=== PATIENT | male | born 1970 | race Caucasian/White ===

== ENCOUNTER 2021-04-21 19:02 | Inpatient (IN) ==
[~2021-04-21 19:02] MED LIST: ETOMIDATE 2 MG/ML 20 ML VIAL IV ONE; RAPID SEQUENCE INDUCTION BAG ONE; ROCURONIUM BROMIDE 10 MG/ML 5 ML VIAL IV ONE
[2021-04-21] MEDS ORDERED: STAT IV Infusion **Titration per Protocol STA ×2 (19:18→22:50)
[2021-04-21] MEDS ORDERED: DIPHTHERIA/TETANUS/PERTUSSIS 0.5 ML SYR/VIAL IM ONE (19:24)
[2021-04-21] MEDS ORDERED: PROPOFOL IV EMULSION 10 MG/ML 100 ML VIAL IV ONE (19:27)
[2021-04-21] MEDS ORDERED: SODIUM CHLORIDE 0.9% 1000ML 1,000 ML IV SCH (19:30)
[2021-04-21] MEDS ORDERED: PATIENT'S HEIGHT AND/OR WEIGHT NEEDED SCH (19:30)
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
[2021-04-21] MEDS: propofoL 1,000 MG/100 ML VIAL IV SCH ×2 (19:39→23:07)
[2021-04-21] MEDS ORDERED: SODIUM CHLORIDE 0.9% 1000ML 1,000 ML IV ONE (19:45)
[2021-04-21 19:47] LABS: Basophils # (auto) 0.05 K/uL (0-0.2); Basophils % (auto) 0.6 %; Eosinophils # (auto) 0.02 K/uL (0-0.5); Eosinophils % (auto) 0.2 %; Hematocrit (blood only) 44.1 % (42-52); Hemoglobin 14.8 g/dL (14.0-18.0); Immature Granulocytes # (auto) 0.02 K/uL (0.00-0.02); Immature Granulocytes % (auto) 0.2 %; Lymphocytes # (auto) 3.57 K/uL (1.2-3.4); Lymphocytes % (auto) 41.2 %; Mean Corpuscular Hemoglobin 30.1 pg (25-34); Mean Corpuscular Hgb Conc 33.6 g/dL (32-36); Mean Corpuscular Volume 89.6 fL (80-100); Mean Platelet Volume 9.6 fL (7.4-10.4); Monocytes # (auto) 0.53 K/uL (0.11-0.59); Monocytes % (auto) 6.1 %; Neutrophils # (auto) 4.47 K/uL (1.4-6.5); Neutrophils % (auto) 51.7 %; Platelet Count 401 K/uL (130-400); RDW Coefficient of Variation 12.9 % (11.5-14.5); RDW Standard Deviation 42.4 fL (36.4-46.3); Red Blood Count 4.92 M/uL (4.7-6.1); White Blood Count 8.66 K/uL (4.8-10.8)
--- NOTE | 2021-04-21 20:00 | XRay Report ---
XR chest 1V portable CLINICAL HISTORY: ETT COMPARISON STUDY: March 29, 2021 FINDINGS: No pneumothorax. No pleural effusion. Opacities are seen within left retrocardiac region and could represent small atelectasis or infiltrat e. Lung volumes are decreased with crowded lung markings. Cardiomediastinal silhouette is within upper limits of normal. Prominence of bilateral kobi with indistinct margins are seen. Overall evaluation is limited due to m ild rotation.. Osseous structures: unremarkable Interval placement of endotracheal tube with tip projecting 2.0 cm above summer. IMPRESSION: 1. Tip of endotracheal tube is projecting 2.0 cm above summer. Please note that the expected positio n of ET tube tube is 3 to 5 cm above summer. 2. Low lung volumes and crowded lung markings. 3. Possible atelectasis/infiltrate within left retrocardiac region. 4. Possible pulmonary edema. ACT 112: Negative or not required by law. The above report was generated using voice recognition software. It may contain grammatical, syntax o r spelling errors. Electronically signed by: Alejandrina Paredes DO 04/21/2021 7:59 PM
[2021-04-21 20:04] LABS: Partial Thromboplastin Ratio 0.9; Partial Thromboplastin Time 23.5 Seconds (21.0-31.0); Prothrombin Time 10.1 Seconds (9.0-12.0)
[2021-04-21 20:06] LABS: Alanine Aminotransferase 27 U/L (12-78); Albumin Level 4.1 gm/dl (3.4-5.0); Aspartate Aminotransferase 29 U/L (15-37); BUN Creatinine Ratio 9.1 (10-20); Blood Urea Nitrogen 11 mg/dl (7-18); Calcium 8.2 mg/dl (8.5-10.1); Carbon Dioxide 23 mmol/L (21-32); Chloride 110 mmol/L (98-107); Est GFR (African American) 82.4 ml/min; Est GFR (Non-African American) 71.1 ml/min; Glucose 109 mg/dl (70-99); Lipase 92 U/L (73-393); Magnesium 1.5 mg/dl (1.8-2.4); Potassium 3.2 mmol/L (3.5-5.1); Sodium 143 mmol/L (136-145)
[2021-04-21 20:08] LABS: Appearance Urine Clear (Clear); Bacteria Urine Automated Negative (Negative); Bilirubin Urine Negative (Negative); Blood Urine Negative (Negative); Cast Urine Automated 0 /lpf (0-5); Color Urine Yellow; Glucose Urine UA Negative (Negative); Ketones Urine Negative (Negative); Leukocyte Esterase Urine Trace (Negative); Nitrite Urine Negative (Negative); Protein Urine Negative (Negative); RBC Urine Automated 0-4 /hpf (0-4); Specific Gravity Urine 1.009 (1.000-1.030); Urobilinogen Urine Negative (Negative); pH Urine 5.5 (4.5-7.5)
[2021-04-21 20:11] LABS: Albumin Globulin Ratio 1.2 (0.9-2); Alkaline Phosphatase 69 U/L (45-117); Bilirubin,Total 0.4 mg/dl (0.2-1); Creatine Kinase 477 U/L (39-308); Globulin 3.5 gm/dl (2.5-4.0); Total Protein 7.6 gm/dl (6.4-8.2); Troponin I < 0.015 ng/ml (0-0.045)
--- NOTE | 2021-04-21 20:11 | CT Scan Report ---
CT head/brain wo con CLINICAL HISTORY: AMS COMPARISON STUDY: March 30, 2021 TECHNIQUE: Axial CT of the brain is performed from the vertex to the skull base. IV contrast was not administered for this examination. A dose lowering technique was utilized adhering to the principles of ALARA. CT DOSE: 666.22 mGycm FINDINGS: No intra or extra-axial mass lesions are visualized. There is no CT evidence of acute cortical infarc tion. There is no evidence of midline shift. There is no acute hemorrhage. No acute depressed calvar ial fractures are visualized. Redemonstration of chronic fracture and deviation of the nasal septum. There is no evidence of pathologic ventricular dilatation. Partial opacification of bilateral ethmoid air cells is seen. Interval resolution of previously seen opacification of the right maxillary sinus. IMPRESSION: No acute intracranial hemorrhage, no midline shift or space occupying lesions. Partial opacification of ethmoid air cells could represent inflammatory process. Interval resolution of previously seen opacification of the right maxillary sinus. ACT 112: Negative or not required by law. The above report was generated using voice recognition software. It may contain grammatical, syntax o r spelling errors. Electronically signed by: Alejandrina Paredes DO 04/21/2021 8:09 PM
[2021-04-21] MEDS: PROPOFOL BOLUS FROM BAG IV PRN ×4 (20:12→21:14)
[2021-04-21 20:18] LABS: Acetaminophen < 2 ug/ml (10-30); Salicylate < 1.7 mg/dl (2.8-20)
[2021-04-21 20:34] LABS: iSTAT Arterial Blood Gas HCO3 26 meg/L (19-24); iSTAT Arterial Blood Gas pCO2 58 mmHg (35-46); iSTAT Arterial Blood Gas pH 7.26 (7.35-7.45); iSTAT Arterial Blood Gas pO2 134 mmHg (80-95); iSTAT Carbon Dioxide 28 mmol/L (24-31)
[2021-04-21] MEDS ORDERED: fentaNYL citrate 100 MCG/2 ML VIAL IV STA (20:36)
--- NOTE | 2021-04-21 20:38 | CT Scan Report ---
CT OF THE CERVICAL SPINE CLINICAL HISTORY: sedated CENTRAL CANAL AND BILATERAL NEUROFORAMINA ARE PATENT. COMPARISON STUDY: No previous studies for comparison. CT DOSE: 424.35 mGycm TECHNIQUE: CT scan of the cervical spine was performed from the skull base to the thoracic inlet. Mackenzie ges are reviewed in the axial, sagittal, and coronal planes. IV contrast was not administered for thi s examination. A dose lowering technique was utilized adhering to the principles of ALARA. FINDINGS: The visualized portions of the lung apices reveal no evidence of pneumothorax. There is minimal prominence of prevertebral soft tissue. Patient is intubated. Normal cervical lordosis is preserved. Vertebral body heights and intervertebral disc spaces are main tained. Evaluation of the lower cervical spine is limited due to beam hardening artifact. There is mild deformity of C6 spinous process (3/349) which might represent fracture of unknown acuit y. No other fractures or traumatic malalignment visualized. Central canal and bilateral neuroforamina are patent. IMPRESSION: Minimally displaced fracture of C6 spinous process. Acuity is unknown. No other fracture or traumatic malalignment is seen. Limited exam of the lower cervical spine due to beam hardening artifact. Prominence of paravertebral soft tissue in this intubated patient. Above-mentioned findings might rep resent traumatic soft tissue injury of the cervical spine or related to intubation. Follow-up evaluat ion with MRI of the cervical spine might be considered if clinically indicated. Findings will be sent to the emergency Department. ACT 112: Negative or not required by law. The above report was generated using voice recognition software. It may contain grammatical, syntax o r spelling errors. Electronically signed by: Alejandrina Paredes DO 04/21/2021 8:36 PM
[2021-04-21 20:40] LABS: Amphetamines+Metham, Urine Neg (Neg); Barbiturates, Urine Neg (Neg); Benzodiazepine, Urine Neg (Neg); Cocaine, Urine Neg (Neg); MDMA (Ecstacy), Urine Neg (Neg); Methadone, Urine Neg (Neg); Opiate, Urine Neg (Neg); Phencyclidine, Urine Neg (Neg)
[2021-04-21] MEDS: POTASSIUM CHLORIDE / WTR 10 MEQ/100 ML PLCT IV SCH ×2 (20:52→21:35)
[2021-04-21] MEDS: MAGNESIUM SULFATE / D5W 1 GM/100 ML BAG IV SCH ×2 (20:55→21:51)
[2021-04-21] MEDS ORDERED: LORazepam 1 MG/2 ML VIAL IV PRN (22:49)
[2021-04-21] MEDS ORDERED: PIPERACILL/TAZOBAC CONSULT ACTIVE PRN (22:49)
[2021-04-21] MEDS ORDERED: ICU PROTOCOL FOR HYPERGLYCEMIA PRN (22:49)
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
[2021-04-21] MEDS ORDERED: MULTI-VITAMIN INFUSION 10 ML, THIAMINE HCL 100 MG, FOLIC ACID 1 MG in SODIUM CHLORIDE 0... IV ONE (23:00)
[2021-04-21] MEDS ORDERED: NORMOSOL-R 1,000 ML IV SCH (23:00)
[2021-04-21] MEDS ORDERED: PATIENT'S HEIGHT NEEDED SCH (23:00)
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
[2021-04-21] MEDS: fentaNYL DRIP 1,250 MCG/250 ML BAG IV SCH (23:08)
[2021-04-21] MEDS ORDERED: PIPERACILLIN/TAZOBACTAM 4.5 GM in DEXTROSE 5% 100 ML IV ONE (23:15)
[2021-04-22 00:02] LABS: iSTAT Allen Test Pass; iSTAT Art Bld Gas pCO2 Correct 32 mmHg (35-46); iSTAT Art Bld Gas pH Corrected 7.403 (7.35-7.45); iSTAT Arterial Blood Gas HCO3 20 meg/L (19-24); iSTAT Arterial Blood Gas pCO2 33 mmHg (35-46); iSTAT Arterial Blood Gas pH 7.39 (7.35-7.45); iSTAT Arterial Blood Gas pO2 126 mmHg (80-95); iSTAT Arterial Blood Gas pO2 C 122; iSTAT Carbon Dioxide 21 mmol/L (24-31); iSTAT FiO2 30 %; iSTAT Hematocrit 37 % (42-52); iSTAT Hemoglobin 12.6 g/dl (14.0-18.0); iSTAT Potassium 4.1 mmol/L (3.3-5.0); iSTAT Site R Radial; iSTAT Sodium 143 mmol/L (135-144)
[2021-04-22] MEDS: NSS + 20MEQ KCL 20 MEQ/1,000 ML BAG IV SCH ×2 (00:31→06:27)
[2021-04-22] MEDS: propofoL 1,000 MG/100 ML VIAL IV SCH ×7 (03:06→20:50)
[2021-04-22 05:34] LABS: Basophils # (auto) 0.03 K/uL (0-0.2); Basophils % (auto) 0.3 %; Eosinophils # (auto) 0.07 K/uL (0-0.5); Eosinophils % (auto) 0.7 %; Hematocrit (blood only) 37.7 % (42-52); Hemoglobin 12.5 g/dL (14.0-18.0); Immature Granulocytes # (auto) 0.02 K/uL (0.00-0.02); Immature Granulocytes % (auto) 0.2 %; Lymphocytes # (auto) 3.46 K/uL (1.2-3.4); Mean Corpuscular Hemoglobin 29.8 pg (25-34); Mean Corpuscular Hgb Conc 33.2 g/dL (32-36); Mean Corpuscular Volume 89.8 fL (80-100); Mean Platelet Volume 9.4 fL (7.4-10.4); Monocytes # (auto) 0.75 K/uL (0.11-0.59); Monocytes % (auto) 7.6 %; Neutrophils # (auto) 5.55 K/uL (1.4-6.5); Neutrophils % (auto) 56.2 %; Platelet Count 270 K/uL (130-400); RDW Coefficient of Variation 13.3 % (11.5-14.5); RDW Standard Deviation 44.2 fL (36.4-46.3); White Blood Count 9.88 K/uL (4.8-10.8)
[2021-04-22 05:42] LABS: INR 1.1 (0.9-1.1); Prothrombin Time 10.7 Seconds (9.0-12.0)
[2021-04-22 06:13] LABS: Alanine Aminotransferase 21 U/L (12-78); Alkaline Phosphatase 52 U/L (45-117); Aspartate Aminotransferase 27 U/L (15-37); BUN Creatinine Ratio 12.7 (10-20); Bilirubin Direct < 0.1 mg/dl (0-0.2); Bilirubin,Total 0.3 mg/dl (0.2-1); Blood Urea Nitrogen 11 mg/dl (7-18); Calcium 6.9 mg/dl (8.5-10.1); Carbon Dioxide 21 mmol/L (21-32); Chloride 116 mmol/L (98-107); Creatine Kinase 631 U/L (39-308); Creatinine Clr Calc Pharmacy 107.2 ml/min; Est GFR (African American) 118.3 ml/min; Est GFR (Non-African American) 102.1 ml/min; Glucose 78 mg/dl (70-99); Magnesium 2.2 mg/dl (1.8-2.4); Phosphorus 2.2 mg/dl (2.5-4.9); Potassium 3.6 mmol/L (3.5-5.1); Sodium 144 mmol/L (136-145); Total Protein 5.5 gm/dl (6.4-8.2); Troponin I < 0.015 ng/ml (0-0.045)
[2021-04-22] MEDS: PIPERACILLIN/TAZOBACTAM 3.375 GM in DEXTROSE 5% 100 ML IV SCH ×3 (06:27→22:13)
[2021-04-22] MEDS ORDERED: POTASSIUM PHOS 3 MMOL/1 ML INFUSION IV STA ×2 (06:33→07:35)
[2021-04-22] MEDS ORDERED: POTASSIUM PHOSPHATE 9 MMOL in SODIUM CHLORIDE 0.9% 250 ML IV ONE ×2 (06:45→09:30)
[2021-04-22] MEDS: FOLIC ACID 1 MG in SYRINGE 9.8 ML IV SCH (07:16)
[2021-04-22] MEDS: THIAMINE HCL 100 MG in SYRINGE 9 ML IV SCH (07:16)
--- NOTE | 2021-04-22 07:31 | Electrocardiogram Report ---
Test Reason : Blood Pressure : / mmHG Vent. Rate : 124 BPM Atrial Rate : 124 BPM P-R Int : 138 ms QRS Dur : 096 ms QT Int : 318 ms P-R-T Axes : 054 -21 060 degrees QTc Int : 456 ms Sinus tachycardia Minimal voltage criteria for LVH, may be normal variant Incomplete right bundle branch block Borderline ECG When compared with ECG of 29-MAR-2021 23:35, Vent. rate has increased BY 45 BPM Confirmed by Moi Leung ([id number]) on 04/22/2021 7:31:07 AM Referred By: REFERRED SELF Confirmed By:Sedrick Leung
--- NOTE | 2021-04-22 07:32 | Hospitalist Progress Note ---
Date of Service April 22, 2021 Assessment & Plan Admission and Anticipated Discharge Date Admission Date: April 21, 2021 Subjective Possible pulmonary edema on chest xray not on CT chest as mentioned in h and p. No Ct chest was done .Thank you Results & Data Results & Data ([facility]) Vital Signs (Past 12 Hours) Vital Signs Temp Pulse Pulse Resp BP BP Pulse Ox 04/22/21 05:04 36.2 C L 62 92/60 L 98 04/22/21 04:04 36.0 C L 62 90/58 L 99 04/22/21 03:25 64 18 98 04/22/21 03:04 35.9 C L 64 97/65 L 98 04/22/21 02:04 36.0 C L 64 82/52 L 96 04/22/21 01:04 36.1 C L 66 83/51 L 95 04/22/21 00:34 36.2 C L 67 83/54 L 96 04/21/21 23:50 68 26 H 96 04/21/21 22:49 36.2 C L 77 69 18 122/84 122/84 96 04/21/21 22:16 75 20 97/65 L 99 04/21/21 22:10 72 94/61 L 98 04/21/21 22:05 73 73 20 92/60 L 92/60 L 98 04/21/21 22:00 75 95/61 L 95/61 L 97 04/21/21 21:55 75 76 20 95/63 L 95/63 L 98 04/21/21 21:51 77 20 100/69 98 04/21/21 21:50 77 100/69 98 04/21/21 21:45 79 103/71 97 04/21/21 21:44 98 H 20 97 04/21/21 21:40 83 113/77 96 04/21/21 21:35 83 122/83 99 04/21/21 21:30 94 H 116/90 94 04/21/21 21:25 81 110/76 98 04/21/21 21:20 79 108/74 97 04/21/21 21:15 86 122/84 98 04/21/21 21:10 91 H 115/80 97 04/21/21 21:05 75 100/67 98 04/21/21 21:00 78 98/66 L 98 04/21/21 20:55 79 98/63 L 98 04/21/21 20:50 80 101/67 98 04/21/21 20:45 84 106/71 98 04/21/21 20:30 106 H 144/98 H 96 04/21/21 20:21 20 04/21/21 20:15 104 H 150/104 H 95 04/21/21 19:35 97
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
[2021-04-22] MEDS: fentaNYL DRIP 1,250 MCG/250 ML BAG IV SCH ×2 (08:52→16:27)
[2021-04-22] MEDS ORDERED: LORazepam 2 MG/4 ML VIAL IV PRN (09:45)
--- NOTE | 2021-04-22 10:24 | XRay Report ---
BONY ORBITS 3 VIEWS CLINICAL HISTORY: MRI clearance. FINDINGS: 3 views of the bony orbits are obtained. No prior studies are available for comparison at t he time of dictation. There is no radiodense/metallic foreign body seen in the region of the bony orb its. The bony orbits are intact as imaged. The visualized paranasal sinuses and the mastoid air cells appear clear. The imaged calvarium appears intact. An endotracheal tube is in place. IMPRESSION: There is no radiodense/metallic foreign body seen in the region of the bony orbits. ACT 112: Negative or not required by law. Electronically signed by: Dewayne Kwong M.D. 04/22/2021 10:23 AM
--- NOTE | 2021-04-22 10:26 | XRay Report ---
KUB CLINICAL HISTORY: MRI clearance. FINDINGS: 2 AP supine abdominal radiographs are obtained. No prior studies are available for comparis on at the time of dictation. There is a nonobstructed abdominal bowel gas pattern. No evidence of int raperitoneal free air is se on these supine images. A rectal temperature probe projects over the pelv is. There are no abnormal abdominal calcifications. The bony structures appear intact. The lung bases are clear as imaged. No radiodense/metallic foreign body is identified. IMPRESSION: No radiodense/metallic foreign body is identified. Electronically signed by: Dewayne Kwong M.D. 04/22/2021 10:25 AM
[2021-04-22] MEDS ORDERED: GADOBUTROL 30ML VIAL IV ONE (10:52)
[2021-04-22] MEDS: PANTOprazole 40 MG in SYRINGE 0 ML IV SCH (11:39)
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
[2021-04-22] MEDS ORDERED: NORMOSOL-R 1,000 ML IV SCH (23:45)
[2021-04-23] MEDS: propofoL 1,000 MG/100 ML VIAL IV SCH ×5 (03:36→10:03)
[2021-04-23] MEDS: fentaNYL DRIP 1,250 MCG/250 ML BAG IV SCH (04:01)
[2021-04-23 05:25] LABS: Basophils # (auto) 0.04 K/uL (0-0.2); Basophils % (auto) 0.4 %; Eosinophils # (auto) 0.18 K/uL (0-0.5); Eosinophils % (auto) 1.9 %; Hematocrit (blood only) 38.3 % (42-52); Hemoglobin 12.4 g/dL (14.0-18.0); Immature Granulocytes # (auto) 0.02 K/uL (0.00-0.02); Immature Granulocytes % (auto) 0.2 %; Lymphocytes # (auto) 3.09 K/uL (1.2-3.4); Lymphocytes % (auto) 32.1 %; Mean Corpuscular Hemoglobin 29.6 pg (25-34); Mean Corpuscular Hgb Conc 32.4 g/dL (32-36); Mean Corpuscular Volume 91.4 fL (80-100); Mean Platelet Volume 9.4 fL (7.4-10.4); Monocytes # (auto) 1.04 K/uL (0.11-0.59); Monocytes % (auto) 10.8 %; Neutrophils # (auto) 5.27 K/uL (1.4-6.5); Neutrophils % (auto) 54.6 %; Platelet Count 202 K/uL (130-400); RDW Coefficient of Variation 13.4 % (11.5-14.5); RDW Standard Deviation 45.1 fL (36.4-46.3); Red Blood Count 4.19 M/uL (4.7-6.1); White Blood Count 9.64 K/uL (4.8-10.8)
[2021-04-23 05:43] LABS: iSTAT Allen Test Pass; iSTAT Art Bld Gas pCO2 Correct 37 mmHg (35-46); iSTAT Art Bld Gas pH Corrected 7.405 (7.35-7.45); iSTAT Arterial Blood Gas HCO3 23 meg/L (19-24); iSTAT Arterial Blood Gas pCO2 37 mmHg (35-46); iSTAT Arterial Blood Gas pH 7.41 (7.35-7.45); iSTAT Arterial Blood Gas pO2 127 mmHg (80-95); iSTAT Arterial Blood Gas pO2 C 127; iSTAT Carbon Dioxide 24 mmol/L (24-31); iSTAT FiO2 28 %; iSTAT Hematocrit 35 % (42-52); iSTAT Hemoglobin 11.9 g/dl (14.0-18.0); iSTAT Potassium 3.8 mmol/L (3.3-5.0); iSTAT Site L Radial; iSTAT Sodium 141 mmol/L (135-144)
[2021-04-23 05:45] LABS: Albumin Level 2.8 gm/dl (3.4-5.0); BUN Creatinine Ratio 12.8 (10-20); Calcium 7.6 mg/dl (8.5-10.1); Creatinine Clr Calc Pharmacy 97.2 ml/min; Est GFR (African American) 107.9 ml/min; Est GFR (Non-African American) 93.1 ml/min; Magnesium 2.3 mg/dl (1.8-2.4)
[2021-04-23 06:03] LABS: Bilirubin,Total 0.7 mg/dl (0.2-1); Phosphorus 3.8 mg/dl (2.5-4.9); Total Protein 5.4 gm/dl (6.4-8.2)
[2021-04-23] MEDS: PIPERACILLIN/TAZOBACTAM 3.375 GM in DEXTROSE 5% 100 ML IV SCH (06:22)
--- NOTE | 2021-04-23 07:23 | XRay Report ---
XR chest 1V portable HISTORY: 50 years-old Male f/u up acute respiratory failure COMPARISON: 04/21/2021 TECHNIQUE: Portable AP view of the chest FINDINGS: Cardiac mediastinal and hilar silhouettes are within normal limits. Endotracheal tube terminates 4.5 cm superior to the summer. No pneumothorax, pleural effusion or overt pulmonary edema. Minimal left l brian base opacities. Bones appear grossly intact. IMPRESSION: 1. Endotracheal tube terminates 4.5 cm superior to the summer. 2. Minimal left lung base opacities, likely atelectasis. 3. No pneumothorax. ACT 112: Negative or not required by law. The above report was generated using voice recognition software. It may contain grammatical, syntax o r spelling errors. Electronically signed by: Misha Suggs M.D. 04/23/2021 7:22 AM
[2021-04-23] MEDS ORDERED: STAT IV Infusion **Titration per Protocol STA (07:42)
[2021-04-23] MEDS ORDERED: ZIPRASIDONE 20 MG/ML SDV IM PRN (07:42)
[2021-04-23] MEDS: THIAMINE HCL 100 MG in SYRINGE 9 ML IV SCH (07:45)
[2021-04-23] MEDS ORDERED: DEXMEDETOMIDINE HCL 200 MCG in SODIUM CHLORIDE 0.9% 48 ML IV SCH (07:45)
[2021-04-23] MEDS: FOLIC ACID 1 MG in SYRINGE 9.8 ML IV SCH (07:45)
[2021-04-23] MEDS ORDERED: LORazepam 3 MG/6 ML VIAL IV PRN (10:12)
[2021-04-23] MEDS ORDERED: LORazepam 1 MG/2 ML VIAL IV PRN (10:12)
[2021-04-23] MEDS ORDERED: ATIVAN IV ALCOHOL WITHDRAWL IV PRN (10:12)
[2021-04-23] MEDS ORDERED: LORazepam 2 MG/4 ML VIAL IV PRN (10:12)
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
[2021-04-23 10:31] LABS: Bilirubin Direct 0.2 mg/dl (0-0.2)
[2021-04-23] MEDS: PANTOprazole 40 MG in SYRINGE 0 ML IV SCH (11:32)
[2021-04-23] MEDS ORDERED: ACETAMINOPHEN SUSP 325 MG/10.15 ML UDC PO PRN (12:03)
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
--- NOTE | 2021-04-23 14:38 | Billing Data ---
Date of Service April 23, 2021 Coding Level of Care Code 93707 Initial Inpt Care Lvl 3 Time Spent (min) 50
--- NOTE | 2021-04-23 15:35 | Communication Note ---
Date of Service: April 23, 2021 Patient awake, not alert and agitated Being discharged today from hospital to assisted Has neck pain Tender to touch neck Grossly neurologically intact lower extremity and left upper extremity Chronic numbness and tingling right hand as per patient Patient not cooperative for exam of the right upper extremity, unable to complete a motor exam on that hand Plan: - may be d/c'd with outpatient follow-up 2 weeks after injury - to wear collar at all times - please contact me with any concerns of any new neurological deficits Kristen Woodruff MD Spine Surgeon [facility]
[2021-04-23] MEDS ORDERED: OLANZapine 10 MG/2.1 ML SDV IM PRN (18:00)
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
[2021-04-25 08:16] LABS: Marijuana Quant, GCMS Urine 90 ng/mL (<5)
== END 2021-04-23 15:47 | disposition home or self-care (01) | DRG 884 ==
LOC: ED 19:02 → 1E 20:36
DX: X58.XXXA Exposure to other specified factors, initial encounter; F17.200 Nicotine dependence, unspecified, uncomplicated; F17.220 Nicotine dependence, chewing tobacco, uncomplicated; R45.1 Restlessness and agitation; R45.6 Violent behavior; J81.1 Chronic pulmonary edema; E87.6 Hypokalemia; R00.0 Tachycardia, unspecified; S12.500A Unspecified displaced fracture of sixth cervical vertebra, initial encounter for closed fracture; E87.2 Acidosis; Z78.1 Physical restraint status; F19.11 Other psychoactive substance abuse, in remission; F05 Delirium due to known physiological condition; E83.42 Hypomagnesemia; F10.229 Alcohol dependence with intoxication, unspecified

== ENCOUNTER 2021-12-10 03:15 | Inpatient (IN) ==
[2021-12-10] MEDS ORDERED: FAMOTIDINE 20MG IV PUSH 20 MG/5 ML SYR IV STA (03:26)
[2021-12-10] MEDS ORDERED: PANTOprazole 80 MG in DEXTROSE 5% 100 ML IV STA (03:26)
[2021-12-10] MEDS ORDERED: ACETAMINOPHEN 1,000 MG/100 ML VIAL IV STA (03:27)
[2021-12-10] MEDS ORDERED: ONDANSETRON INJ 2 MG/ML 2 ML VIAL IV STA (03:29)
[2021-12-10] MEDS ORDERED: SODIUM CHLORIDE 0.9% 1000ML 1,000 ML IV SCH (03:30)
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
[2021-12-10 04:01] LABS: Basophils # (auto) 0.01 K/uL (0-0.2); Basophils % (auto) 0.1 %; Eosinophils # (auto) 0.02 K/uL (0-0.5); Eosinophils % (auto) 0.1 %; Hematocrit (blood only) 45.3 % (42-52); Hemoglobin 15.3 g/dL (14.0-18.0); Immature Granulocytes % (auto) 0.5 %; Lymphocytes # (auto) 2.18 K/uL (1.2-3.4); Lymphocytes % (auto) 11.8 %; Mean Corpuscular Hemoglobin 28.5 pg (25-34); Mean Corpuscular Hgb Conc 33.8 g/dL (32-36); Mean Corpuscular Volume 84.5 fL (80-100); Mean Platelet Volume 9.5 fL (7.4-10.4); Monocytes # (auto) 1.45 K/uL (0.11-0.59); Monocytes % (auto) 7.9 %; Neutrophils # (auto) 14.66 K/uL (1.4-6.5); Neutrophils % (auto) 79.6 %; Platelet Count 283 K/uL (130-400); RDW Standard Deviation 39.8 fL (36.4-46.3); Red Blood Count 5.36 M/uL (4.7-6.1); White Blood Count 18.42 K/uL (4.8-10.8)
[2021-12-10 04:13] LABS: Partial Thromboplastin Ratio 0.9; Partial Thromboplastin Time 23.9 Seconds (21.0-31.0); Prothrombin Time 10.6 Seconds (9.0-12.0)
[2021-12-10 04:24] LABS: Troponin I < 0.03 ng/ml (0-0.04)
[2021-12-10 04:29] LABS: Anion Gap 9 (3-11); BUN Creatinine Ratio 16.3 (10-20); Blood Urea Nitrogen 17 mg/dl (6-23); Calcium 9.2 mg/dl (8.5-10.1); Carbon Dioxide 28 mmol/L (21-32); Chloride 101 mmol/L (98-107); Creatinine Clr Calc Pharmacy 96.1 ml/min; Est GFR (African American) 97.3 ml/min; Est GFR (Non-African American) 83.9 ml/min; Glucose 116 mg/dl (70-99(Fasting)); Potassium 4.2 mmol/L (3.5-5.1); Sodium 138 mmol/L (136-145)
[2021-12-10] MEDS ORDERED: OPTIRAY 320 100ml IV ONE (04:49)
[2021-12-10 04:57] LABS: Alanine Aminotransferase 20 U/L (7-52); Albumin Globulin Ratio 1.7 (0.9-2); Albumin Level 4.5 gm/dl (3.4-5.0); Alkaline Phosphatase 79 U/L (34-104); Aspartate Aminotransferase 18 U/L (13-39); Bilirubin,Total 0.6 mg/dl (0.2-1.0); Globulin 2.7 gm/dl (2.5-4.0); Lipase 1482 U/L (11-82); Total Protein 7.2 gm/dl (6.0-8.3)
[2021-12-10] MEDS ORDERED: LACTATED RINGER'S 1,000 ML IV STA (06:00)
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
[2021-12-10] MEDS ORDERED: PROMETHAZINE HCL 12.5 MG in SODIUM CHLORIDE 0.9% 50 ML IV PRN (06:19)
[2021-12-10] MEDS ORDERED: MoRPHine SULFATE 4 MG/ML 1 ML CARP\\VIAL IV PRN (06:19)
[2021-12-10] MEDS ORDERED: ACETAMINOPHEN 325 MG TAB PO PRN (06:19)
[2021-12-10 08:31] LABS: Estimated Average Glucose 126 mg/dl
[2021-12-10] MEDS ORDERED: MIDAZOLAM HCL 1 MG/ML 2ML VIAL ONE (08:32)
--- NOTE | 2021-12-10 08:33 | CT Scan Report ---
ABDOMEN AND PELVIS CT WITH IV CONTRAST CT DOSE: 574.16 mGy.cm HISTORY: Acute epigastric abdominal pain with reported GI bleed Epigastric pain, GI bleed TECHNIQUE: Multiaxial CT images of the abdomen and pelvis were performed following the IV administrat ion of 93 cc of Optiray, A dose lowering technique was utilized adhering to the principles of ALARA. COMPARISON STUDY: None. FINDINGS: Imaged inferior cardiac chambers are unremarkable. Minimal bibasilar atelectasis. There is no pneumat osis or pneumoperitoneum. The spleen, adrenal glands, gallbladder and liver are unremarkable. 1.8 cm right hepatic lobe cyst. Patency of the hepatic and portal veins. There is no intrahepatic or extrahe patic biliary ductal dilation. Mild diffuse dilation of the pancreatic duct measures up to 5 mm. No o bstructing pancreatic mass or stone identified. There is moderate diffuse interstitial and peripancre atic edema with small volume of ascites within the lesser sac. No pancreatic necrosis or well-defined fluid collection. 1.7 cm cyst of the superior pole left kidney. No hydronephrosis. Symmetric enhancement of the kidneys . Moderate bladder wall thickening with partial distention. Unremarkable prostate. Aorta and IVC are unremarkable. Nonspecific circumferential wall thickening of the distal esophagus. Mild wall thickening of the duod enum. No bowel obstruction. Mild fecal retention. Normal appendix. Unremarkable soft tissues. No acut e fracture. IMPRESSION: 1. Findings compatible with acute interstitial edematous pancreatitis. No acute peripancreatic fluid collection. 2. Mild diffuse dilation of the pancreatic duct without biliary ductal dilation. No obstructing stone or lesion identified. Findings could be correlated with ERCP. 3. Mild wall thickening of the duodenum is likely reactive. 4. Nonspecific circumferential wall thickening of the distal esophagus. Correlate clinically to exclu de esophagitis. 5. Normal appendix. ACT 112: Negative or not required by law. The above report was generated using voice recognition software. It may contain grammatical, syntax o r spelling errors. Electronically signed by: Misha Suggs M.D. 12/10/2021 8:31 AM
[2021-12-10 08:34] LABS: Thyroid Stimulating Hormone 6.864 uIu/ml (0.300-4.500)
[2021-12-10] MEDS ORDERED: LIDOCAINE 2% 2 ML VIAL/AMP(20MG/ML) INFIL ONE (08:34)
[2021-12-10] MEDS ORDERED: PROPOFOL IV EMULSION 10 MG/ML 20 ML VIAL IV ONE (08:34)
[2021-12-10] MEDS ORDERED: ONDANSETRON INJ 2 MG/ML 2 ML VIAL ONE (08:34)
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
--- NOTE | 2021-12-10 08:57 | History & Physical Bridge Note ---
Date of Service December 10, 2021 History & Physical Bridge Note I have examined the patient, reviewed the History & Physical and in the interval since the performance of the History & Physical I have noted the following changes of clinical significance: no changes noted. Please see the full GI consult for details. The patient presented with abdominal pain and a question of coffee-ground emesis in the setting of dark stool for a few days. The patient was recently started on Seroquel and is presently on Naprosyn several times daily. He denies having fevers chills sweats or rigors. No intra- abdominal surgeries are noted. Plan EGD today
[2021-12-10 09:07] LABS: T4 Free Thyroxine 0.83 ng/dl (0.61-1.60)
--- NOTE | 2021-12-10 09:25 | GI REPORT ---
Patient Name: Ayaan Lambert Procedure Date: 12/10/2021 8:53 AM Date of : 1970 Admit Type: Inpatient Age: 51 Gender: Male Attending MD: Ritu Loza DO Procedure: Upper GI endoscopy Providers: Ritu Loza DO Referring MD: Alli Snyder Md Indications: Epigastric abdominal pain, Coffee-ground emesis Medicines: Monitored Anesthesia Care Complications: No immediate complications. Estimated blood loss: Minimal. Estimated Blood Loss: Estimated blood loss was minimal. Procedure: Pre-Anesthesia Assessment: - Prior to the procedure, a History and Physical was performed, and patient medications, allergies and sensitivities were reviewed. The patient's tolerance of previous anesthesia was reviewed. - The risks and benefits of the procedure and the sedation options and risks were discussed with the patient. All questions were answered and informed consent was obtained. - Patient identification and proposed procedure were verified prior to the procedure by the physician, the nurse and the allergy and immunology specialist. The procedure was verified in the procedure room. - Pre-procedure physical examination revealed no contraindications to sedation. - ASA Grade Assessment: II - A patient with mild systemic disease. - After reviewing the risks and benefits, the patient was deemed in satisfactory condition to undergo the procedure. - The anesthesia plan was to use monitored anesthesia care (MAC). - Immediately prior to administration of medications, the patient was re-assessed for adequacy to receive sedatives. - The heart rate, respiratory rate, oxygen saturations, blood pressure, adequacy of pulmonary ventilation, and response to care were monitored throughout the procedure. - The physical status of the patient was re-assessed after the procedure. After obtaining informed consent, the endoscope was passed under direct vision. Throughout the procedure, the patient's blood pressure, pulse, and oxygen saturations were monitored continuously. The Endoscope was introduced through the mouth, and advanced to the third part of duodenum. The upper GI endoscopy was accomplished without difficulty. The patient tolerated the procedure well. Findings: The examined esophagus was normal. The Z-line was regular and was found 36 cm from the incisors. The entire examined stomach was normal. Biopsies were taken with a cold forceps for histology. The pathology specimen was placed into Bottle A. Estimated blood loss was minimal. Diffuse moderate inflammation characterized by congestion (edema), erosions and friability was found in the duodenal bulb. The second portion of the duodenum and third portion of the duodenum were normal. Impression: - Normal esophagus. - Z-line regular, 36 cm from the incisors. - Normal stomach. Biopsied. - Duodenitis. - Normal second portion of the duodenum and third portion of the duodenum. Recommendation: - Return patient to hospital [facility] for ongoing care. - Clear liquid diet. - Would suggest stopping use of NSAIDS - Omeprazole or Protonix 20 mg daily for 3 months Ritu Loza D.O. Ritu Loza, 12/10/2021 9:25:07 AM This report has been signed electronically. Note Initiated On: 12/10/2021 8:53 AM Number of Addenda: 0 I attest to the content of the Intraoperative Record and orders documented therein, exceptions below {[id number]}
[2021-12-10] MEDS: LEVOTHYROXINE SODIUM 75 MCG TABLET PO SCH (09:59)
[2021-12-10] MEDS: busPIRone 15 MG TAB PO SCH ×2 (09:59→21:30)
[2021-12-10] MEDS: MULTIVITAMIN TAB PO SCH (10:00)
[2021-12-10 10:48] LABS: Hemoglobin 14.2 g/dL (14.0-18.0)
--- NOTE | 2021-12-10 11:12 | Anesthesiology Progress Note ---
Date of Service December 10, 2021 Anesthesia Post Procedure Vital Signs Vital Signs: Temp Pulse Pulse Pulse Resp BP BP 12/10/21 09:55 36.6 C 66 16 121/83 12/10/21 09:47 77 18 126/87 12/10/21 09:31 76 18 127/83 12/10/21 09:17 81 16 120/83 12/10/21 08:52 36.7 C 64 18 129/83 12/10/21 08:04 36.7 C 74 16 131/93 12/10/21 06:56 66 18 133/87 12/10/21 05:00 64 18 127/81 12/10/21 03:26 36.7 C 74 77 18 141/91 H 12/10/21 03:19 36.5 C 87 18 114/91 Pulse Ox 12/10/21 09:55 95 12/10/21 09:47 95 12/10/21 09:31 96 12/10/21 09:17 96 12/10/21 08:52 96 12/10/21 08:04 95 12/10/21 06:56 95 12/10/21 05:00 96 12/10/21 03:26 97 12/10/21 03:19 96 Pain Intensity Upper Medial Abdomen: Pain Intensity: 7 Transfer of Care Handoff Completed per policy Notes Mental Status: alert / awake / arousable Patient Amnestic to Procedure: Yes Nausea / Vomiting: adequately controlled Pain: adequately controlled Airway Patency, RR, SpO2: stable & adequate BP & HR: stable & adequate Hydration State: stable & adequate Anesthetic Complications: no major complications apparent
--- NOTE | 2021-12-10 12:24 | Electrocardiogram Report ---
Test Reason : Blood Pressure : / mmHG Vent. Rate : 067 BPM Atrial Rate : 067 BPM P-R Int : 154 ms QRS Dur : 104 ms QT Int : 404 ms P-R-T Axes : 020 -20 027 degrees QTc Int : 426 ms Normal sinus rhythm Incomplete right bundle branch block Minimal voltage criteria for LVH, may be normal variant Borderline ECG When compared with ECG of 21-APR-2021 19:22, Vent. rate has decreased BY 57 BPM Incomplete right bundle branch block is now Present Confirmed by Jose F Michael ([id number]) on 12/10/2021 12:23:47 PM Referred By: [facility] Confirmed By:Jose F Michael
[2021-12-10] MEDS: oxyCODONE HCL IR 5 MG TAB (IMMEDIATE RELEASE) PO PRN ×3 (12:50→22:02)
[2021-12-10] MEDS: LACTATED RINGER'S 1,000 ML IV SCH ×3 (12:51→22:04)
[2021-12-10 14:14] LABS: Hematocrit (blood only) 42.3 % (42-52); Hemoglobin 14.6 g/dL (14.0-18.0)
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
[2021-12-10] MEDS ORDERED: MAGNESIUM SULFATE / D5W 1 GM/100 ML BAG IV ONE (15:03)
[2021-12-10] MEDS: NORTRIPTYLINE HCL 25 MG CAP PO SCH (21:30)
[2021-12-10] MEDS: QUEtiapine FUMARATE 100 MG TABLET PO SCH (21:30)
[2021-12-10] MEDS: PANTOprazole 40 MG in SYRINGE 0 ML IV SCH (21:31)
[2021-12-11] MEDS: oxyCODONE HCL IR 5 MG TAB (IMMEDIATE RELEASE) PO PRN ×5 (02:50→20:17)
[2021-12-11] MEDS: LACTATED RINGER'S 1,000 ML IV SCH ×4 (03:05→20:18)
[2021-12-11] MEDS: LEVOTHYROXINE SODIUM 75 MCG TABLET PO SCH (06:28)
[2021-12-11 08:15] LABS: Basophils # (auto) 0.04 K/uL (0-0.2); Basophils % (auto) 0.3 %; Eosinophils # (auto) 0.87 K/uL (0-0.5); Eosinophils % (auto) 5.5 %; Hematocrit (blood only) 42.5 % (42-52); Hemoglobin 14.6 g/dL (14.0-18.0); Immature Granulocytes # (auto) 0.08 K/uL (0.00-0.02); Immature Granulocytes % (auto) 0.5 %; Lymphocytes # (auto) 2.75 K/uL (1.2-3.4); Lymphocytes % (auto) 17.3 %; Mean Corpuscular Hemoglobin 29.3 pg (25-34); Mean Corpuscular Hgb Conc 34.4 g/dL (32-36); Mean Corpuscular Volume 85.2 fL (80-100); Mean Platelet Volume 9.2 fL (7.4-10.4); Monocytes # (auto) 1.51 K/uL (0.11-0.59); Monocytes % (auto) 9.5 %; Neutrophils # (auto) 10.68 K/uL (1.4-6.5); Neutrophils % (auto) 66.9 %; Platelet Count 279 K/uL (130-400); RDW Coefficient of Variation 13.5 % (11.5-14.5); RDW Standard Deviation 41.5 fL (36.4-46.3); Red Blood Count 4.99 M/uL (4.7-6.1); White Blood Count 15.93 K/uL (4.8-10.8)
[2021-12-11 09:09] LABS: BUN Creatinine Ratio 7.6 (10-20); Calcium 8.9 mg/dl (8.5-10.1); Creatinine Clr Calc Pharmacy 108.7 ml/min; Est GFR (African American) 112.8 ml/min; Est GFR (Non-African American) 97.3 ml/min; Magnesium 1.7 mg/dl (1.7-2.4); Potassium 4.2 mmol/L (3.5-5.1)
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
[2021-12-11] MEDS: MULTIVITAMIN TAB PO SCH (09:24)
[2021-12-11] MEDS: busPIRone 15 MG TAB PO SCH ×2 (09:24→20:18)
[2021-12-11] MEDS: PANTOprazole 40 MG in SYRINGE 0 ML IV SCH (12:44)
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
[2021-12-11] MEDS: PANTOprazole 40 MG TAB PO SCH (20:19)
[2021-12-11] MEDS: QUEtiapine FUMARATE 100 MG TABLET PO SCH (20:19)
[2021-12-11] MEDS: NORTRIPTYLINE HCL 25 MG CAP PO SCH (20:19)
[2021-12-12] MEDS: oxyCODONE HCL IR 5 MG TAB (IMMEDIATE RELEASE) PO PRN ×3 (03:13→12:51)
[2021-12-12] MEDS: LACTATED RINGER'S 1,000 ML IV SCH ×3 (03:13→17:33)
[2021-12-12] MEDS: LEVOTHYROXINE SODIUM 75 MCG TABLET PO SCH (05:38)
[2021-12-12] MEDS: PANTOprazole 40 MG TAB PO SCH ×2 (08:35→21:53)
[2021-12-12] MEDS: busPIRone 15 MG TAB PO SCH ×2 (08:36→21:53)
[2021-12-12] MEDS: MULTIVITAMIN TAB PO SCH (08:36)
[2021-12-12 08:59] LABS: Hematocrit (blood only) 40.3 % (42-52); Hemoglobin 14.1 g/dL (14.0-18.0); Mean Corpuscular Hemoglobin 29.4 pg (25-34); Mean Corpuscular Volume 84.1 fL (80-100); Mean Platelet Volume 9.1 fL (7.4-10.4); Platelet Count 301 K/uL (130-400); RDW Coefficient of Variation 13.3 % (11.5-14.5); Red Blood Count 4.79 M/uL (4.7-6.1); White Blood Count 16.65 K/uL (4.8-10.8)
[2021-12-12] MEDS: ACETAMINOPHEN 325 MG TAB PO SCH (16:07)
[2021-12-12] MEDS: POLYETHYLENE (MIRALAX) 17 GM PACK PO SCH (16:08)
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
[2021-12-12] MEDS: NORTRIPTYLINE HCL 25 MG CAP PO SCH (21:53)
[2021-12-12] MEDS: QUEtiapine FUMARATE 100 MG TABLET PO SCH (21:53)
[2021-12-13] MEDS: ACETAMINOPHEN 325 MG TAB PO SCH ×3 (04:09→15:39)
[2021-12-13] MEDS: LACTATED RINGER'S 1,000 ML IV SCH (05:57)
[2021-12-13] MEDS: LEVOTHYROXINE SODIUM 75 MCG TABLET PO SCH (05:58)
[2021-12-13] MEDS: busPIRone 15 MG TAB PO SCH (07:57)
[2021-12-13] MEDS: PANTOprazole 40 MG TAB PO SCH (07:57)
[2021-12-13] MEDS: MULTIVITAMIN TAB PO SCH (07:57)
[2021-12-13] MEDS: POLYETHYLENE (MIRALAX) 17 GM PACK PO SCH (07:59)
[2021-12-13 09:55] LABS: Basophils # (auto) 0.04 K/uL (0-0.2); Basophils % (auto) 0.3 %; Eosinophils # (auto) 0.92 K/uL (0-0.5); Eosinophils % (auto) 7.2 %; Hemoglobin 13.9 g/dL (14.0-18.0); Immature Granulocytes # (auto) 0.07 K/uL (0.00-0.02); Immature Granulocytes % (auto) 0.5 %; Lymphocytes # (auto) 2.45 K/uL (1.2-3.4); Lymphocytes % (auto) 19.1 %; Mean Corpuscular Hemoglobin 29.2 pg (25-34); Mean Corpuscular Hgb Conc 34.8 g/dL (32-36); Mean Platelet Volume 9.1 fL (7.4-10.4); Monocytes # (auto) 0.95 K/uL (0.11-0.59); Monocytes % (auto) 7.4 %; Neutrophils # (auto) 8.41 K/uL (1.4-6.5); Neutrophils % (auto) 65.5 %; Platelet Count 292 K/uL (130-400); RDW Coefficient of Variation 13.4 % (11.5-14.5); RDW Standard Deviation 40.8 fL (36.4-46.3); Red Blood Count 4.76 M/uL (4.7-6.1); White Blood Count 12.84 K/uL (4.8-10.8)
[2021-12-13 10:15] LABS: BUN Creatinine Ratio 9.9 (10-20); Calcium 9.3 mg/dl (8.5-10.1); Creatinine Clr Calc Pharmacy 88.5 ml/min; Est GFR (African American) 100.8 ml/min; Est GFR (Non-African American) 86.9 ml/min; Potassium 3.9 mmol/L (3.5-5.1)
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
== END 2021-12-13 16:56 | DRG 377 ==
LOC: ED 03:15 → SUATTDRO 06:16 → 2W 06:16
DX: F39 Unspecified mood [affective] disorder; Y92.89 Other specified places as the place of occurrence of the external cause; R73.03 Prediabetes; M54.12 Radiculopathy, cervical region; F10.11 Alcohol abuse, in remission; E83.42 Hypomagnesemia; E03.9 Hypothyroidism, unspecified; K29.81 Duodenitis with bleeding; S12.9XXS Fracture of neck, unspecified, sequela; K85.90 Acute pancreatitis without necrosis or infection, unspecified; Z88.6 Allergy status to analgesic agent; Z83.3 Family history of diabetes mellitus; X58.XXXS Exposure to other specified factors, sequela